=== PATIENT | female | born 2000 | race Caucasian/White ===

== ENCOUNTER 2022-02-08 06:58 | Outpatient (CLI) | payer OTHER | END 2022-02-08 10:09 | disposition home or self-care (01) | LOC: LAB 06:58 | PROVIDERS: ATTEND Internal Medicine Hematology & Oncology | DX: D50.8 Other iron deficiency anemias (principal); R79.9 Abnormal finding of blood chemistry, unspecified; I10 Essential (primary) hypertension; R74.02 Elevation of levels of lactic acid dehydrogenase [LDH]; K76.89 Other specified diseases of liver; E06.3 Autoimmune thyroiditis; D68.8 Other specified coagulation defects; D51.8 Other vitamin B12 deficiency anemias; D51.1 Vitamin B12 deficiency anemia due to selective vitamin B12 malabsorption with proteinuria; D51.0 Vitamin B12 deficiency anemia due to intrinsic factor deficiency; E56.1 Deficiency of vitamin K; D50.0 Iron deficiency anemia secondary to blood loss (chronic); G43.009 Migraine without aura, not intractable, without status migrainosus; A56.2 Chlamydial infection of genitourinary tract, unspecified ==